=== PATIENT | male | born 1965 | race Caucasian/White ===

== ENCOUNTER 2020-01-01 06:10 | Emergency (ER) | payer OTHER, SELFPAY ==
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
--- NOTE | ~2020-01-01 | XR_ITS ---
XR knee RT 2V 01/01/2020 07:22 INDICATION: Right knee pain PROCEDURE: 2 views right knee COMPARISON: No prior studies for comparison. FINDINGS: Fracture, dislocation or subluxation is not identified. No significant joint effusion. The soft tissues appear within normal limits. No foreign bodies are identified. IMPRESSION: 1: NO ACUTE BONE OR JOINT ABNORMALITY IDENTIFIED. Reviewed, dictated and finalized at location A.
[2020-01-01 06:10] VITALS: BP 146/70; PULSE 77; RESP 20; TEMP 36.8; O2SAT 100
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
[2020-01-01] MEDS: TETANUS,DIPHTHERIA,AC PERTUSSIS ADULT 0.5 ML (ADACEL) IM (07:05)
--- NOTE | 2020-01-01 07:14 | PC.NURSE ---
PT LEFT HAND SWOLLEN AND 4TH DIGIT KNUCKLES SWOLLEN. PT HAS [place] BAND ON, BAND LUBRICATED. UNABLE TO REMOVE. PT AND PERMISSION TO CUT OF BAND WITH RING CUTTER. PT TOLERATED WELL . BAND GIVEN TO .
[2020-01-01] MEDS: LIDOCAINE HCL 1% LOCAL INJ 20 ML VIAL 10 ML INFILTRATE (07:19)
[2020-01-01] MEDS: NEOMYCIN/POLYMYXIN/BACITRACIN OINTMENT PACKET 5 PACKET TOPICAL (07:21)
--- NOTE | 2020-01-01 07:22 | PC.NURSE ---
0705 pt to xray. 0725 pt return to room. awaiting xray readings.
[2020-01-01 08:19] VITALS: BP 153/97; PULSE 86; RESP 20; O2SAT 98
--- NOTE | 2020-01-06 08:13 | PC.NURSE ---
OCL applied to right hand
== END 2020-01-01 08:21 | disposition home or self-care (01) ==
PROVIDERS: Emergency Provider Emergency Medicine; PCP Internal Medicine
DX: S01.81XA Laceration without foreign body of other part of head, initial encounter (principal); S62.305A Unspecified fracture of fourth metacarpal bone, left hand, initial encounter for closed fracture; S62.307A Unspecified fracture of fifth metacarpal bone, left hand, initial encounter for closed fracture; V19.9XXA Pedal cyclist (driver) (passenger) injured in unspecified traffic accident, initial encounter
CPT/HCPCS: 12013; 12014; 29125; 70486; 73120; 73560; 90471; 90715; 99283; 99284

== ENCOUNTER 2020-05-23 14:33 | Outpatient (RCR) | payer OTHER, SELFPAY ==
--- NOTE | 2020-05-31 15:16 | PTOPEVAL ---
Thank you for referring Baron Scott to [facility].? The patient is scheduled to be seen for therapy? ____x/week for ___ weeks. Please review, sign, date and return this plan of care ELIZABETH. I agree with and certify that the following plan of care is medically necessary. Referring Physician Date Admitting Provider: Attending Provider: PEPE BISWAS Referring Provider: MESERET Outpatient Evaluation Start: 05/23/20 14:11 Freq: Status: Active Protocol: Document 05/23/20 14:30 [facility] (Rec: 05/23/20 14:48 [facility] [id number]) Therapy Assessment Status Assessment Status Assessment Status Evaluation Outpatient Past Medical History HEENT History Hx Tonsillectomy Yes Evaluation Information Problem Diagnosis L LE pain Subjective Information patient reports pain in the Query Text:As Reported By Patient/ posterior L leg in the calf Family and posterior thigh region. he reports it has been going on for about 6 months. he reports he has been working from home a lot and has been sittin gmost of the day. he reports he has been taking some meds for about 1 month. he reports decreased pain/symptoms with sitting in a normal chair. he reports difficulty with stairs (worse going up). Prior Level of Function Comments Additional Prior Level of Function patient reports prior history Comments of no pain in the L knee. he reports he is seeking massage therapy care and has had physician primary care sports medicine for this issue. Pain Assessment Timing of Pain Assessment Timing of Pain Assessment Assessment Pain Scale Pain Scale Used Numeric (1 - 10) Self Report Pain Assessment Left Leg(s) Reported Pain Level 3 Pain Score Pain Score 3: Self Report Interventions Used Interventions Used By Clinicians Activity or ADL's,Education, Exercise Lower Extremity Range of Motion Hip Range of Motion Bilateral Reason Not Measured WNL/Left,WNL/Right Knee Range of Motion Bilateral Reason Not Measured WNL/Left,WNL/Right Lower Extremity Muscle Strength Testing Hip Strength Bilateral Hip Flexion Strength 5 Normal Hip Extension Strength 5 Normal Hip Abduction Strength 5 Normal Knee Strength Bilateral Knee Flexion Strength 5 Normal Knee Extension Strength 5 Normal
--- NOTE | 2020-06-17 14:19 | PTOPEVAL ---
Thank you for referring Baron Scott to [facility].? The patient is scheduled to be seen for therapy? ____x/week for ___ weeks. Please review, sign, date and return this plan of care ELIZABETH. I agree with and certify that the following plan of care is medically necessary. Referring Physician Date Admitting Provider: Attending Provider: PEPE BISWAS Referring Provider: MESERET Outpatient Evaluation Start: 05/23/20 14:11 Freq: Status: Active Protocol: Document 06/17/20 13:40 [facility] (Rec: 06/17/20 14:16 [facility] [id number]) Outpatient Past Medical History HEENT History Hx Tonsillectomy Yes Evaluation Information Problem Diagnosis L LE pain Onset 05/18/20 Subjective Information Patient states since the Query Text:As Reported By Patient/ starting therapy, he has been Family able to perform all activities with no difficulty. He has no difficulty with going up and down stairs or sitting in a normal chair anymore. the only time his pain increases is after a long day and it is minimal. Pain Assessment Timing of Pain Assessment Timing of Pain Assessment Assessment Pain Scale Pain Scale Used Numeric (1 - 10) Self Report Pain Assessment Left Leg(s) Reported Pain Level 0 Greatest Pain Intensity 2 Pain Score Pain Score 0: Self Report Interventions Used Interventions Used By Clinicians Activity or ADL's,Education, Exercise Lower Extremity Muscle Strength Testing Knee Strength Bilateral Knee Flexion Strength 5 Normal Knee Extension Strength 5 Normal Knee Strength Comments prone hamstring strength 5/5 Muscle Length Testing Muscle Length Testing Left Hamstring Length 15 Query Text:(90 - 90 Position) Right Hamstring Length 15 Query Text:(90 - 90 Position) Palpation Assessment Palpation Palpation Patient has no tenderness to palpation along the pes anserine bursa or medial joint line. General Exercise General Exercises Exercise Description -hamstrings stretching 6 Query Text:Record Sets, Reps, minutes Resistance, and Position -slant board stretch for gastroc x 3 min -squats x 20 -lunges on bosu x 20 bilat -heel/toe raises x 30 ea -8 in step ups x 20 bilat for
== END 2020-06-17 15:01 | disposition home or self-care (01) ==
LOC: CHSPT 14:33
DX: M71.22 Synovial cyst of popliteal space [Baker], left knee (principal); M54.32 Sciatica, left side
CPT/HCPCS: 97110; 97140; 97161

== ENCOUNTER 2021-02-17 09:31 | Outpatient (CLI) | payer OTHER, SELFPAY ==
[2021-02-17 10:20] LABS: SARS-CoV-2 RNA PCR Negative (Negative)
== END 2021-02-17 09:32 | disposition home or self-care (01) ==
LOC: CHSLAB 09:33
PROVIDERS: PCP Internal Medicine; Visit Provider Internal Medicine
DX: J06.9 Acute upper respiratory infection, unspecified (principal); Z20.822 Contact with and (suspected) exposure to COVID-19
CPT/HCPCS: C9803; U0003; U0005

== ENCOUNTER 2021-05-04 08:07 | Outpatient (CLI) | payer OTHER, SELFPAY ==
[2021-05-04 08:43] LABS: Basophils Absolute Auto 0.09 K/mm3 (0.00-0.10); Basophils Percent Auto 1.3 % (0.0-1.0); Eosinophils Absolute Auto 0.19 K/mm3 (0.02-0.50); Eosinophils Percent Auto 2.7 % (1.0-6.0); Hematocrit 48.1 % (40.0-54.0); Hemoglobin 16.3 g/dL (14.0-18.0); Immature Granulocyte Absolute 0.03 K/mm3 (0.00-0.00); Immature Granulocyte Percent A 0.4 % (0.0-0.0); Lymphocytes Absolute Auto 2.51 K/mm3 (1.10-4.50); Mean Corpuscular HGB Conc 33.9 g/dL (32.0-36.0); Mean Corpuscular Hemoglobin 31.2 pg (27.0-31.0); Mean Platelet Volume 10.1 fl (8.7-11.0); Monocytes Absolute Auto 0.52 K/mm3 (0.10-0.90); Monocytes Percent Auto 7.4 % (2.0-11.0); Neutrophils Absolute Auto 3.6 K/mm3 (1.7-7.2); Neutrophils Percent Auto 52.2 % (50.0-70.0); Platelet Count Result 318 K/mm3 (150-420); Red Blood Count 5.23 M/mm3 (4.70-6.10)
[2021-05-04 09:50] LABS: Ferritin 162 ng/mL (26-388); Iron 82 ug/dL (65-175); Percent Iron Saturation 23 % (12-57)
== END 2021-05-04 08:08 | disposition home or self-care (01) ==
LOC: CHSLAB 08:14
PROVIDERS: PCP Internal Medicine
DX: E61.1 Iron deficiency (principal)
CPT/HCPCS: 36415; 82728; 83540; 83550; 85025

== ENCOUNTER 2021-12-02 07:02 | Outpatient (CLI) | payer OTHER, SELFPAY ==
[2021-12-02 07:16] LABS: Basophils Absolute Auto 0.09 K/mm3 (0.00-0.10); Basophils Percent Auto 1.4 % (0.0-1.0); Eosinophils Absolute Auto 0.32 K/mm3 (0.02-0.50); Eosinophils Percent Auto 4.9 % (1.0-6.0); Hematocrit 48.4 % (40.0-54.0); Hemoglobin 16.3 g/dL (14.0-18.0); Immature Granulocyte Absolute 0.02 K/mm3 (0.00-0.00); Immature Granulocyte Percent A 0.3 % (0.0-0.0); Lymphocytes Absolute Auto 2.29 K/mm3 (1.10-4.50); Lymphocytes Percent Auto 35.2 % (18.0-42.0); Mean Corpuscular HGB Conc 33.7 g/dL (32.0-36.0); Mean Corpuscular Hemoglobin 31.3 pg (27.0-31.0); Mean Corpuscular Volume 92.9 fL (78.0-102.0); Mean Platelet Volume 10.1 fl (8.7-11.0); Monocytes Percent Auto 7.7 % (2.0-11.0); Neutrophils Absolute Auto 3.3 K/mm3 (1.7-7.2); Neutrophils Percent Auto 50.5 % (50.0-70.0); Platelet Count Result 326 K/mm3 (150-420); Red Blood Count 5.21 M/mm3 (4.70-6.10); Red Cell Distribution Width 12.3 % (11.6-14.4); White Blood Count 6.5 K/mm3 (4.8-10.8)
[2021-12-02 08:02] LABS: Ferritin 130 ng/mL (26-388); Iron 108 ug/dL (65-175); Percent Iron Saturation 31 % (12-57)
== END 2021-12-02 07:03 | disposition home or self-care (01) ==
LOC: CHSLAB 07:05
PROVIDERS: PCP Internal Medicine
DX: D64.9 Anemia, unspecified (principal); E61.1 Iron deficiency
CPT/HCPCS: 36415; 82728; 83540; 83550; 85025

== ENCOUNTER 2022-04-05 07:56 | Outpatient (RCR) | payer OTHER, SELFPAY ==
--- NOTE | 2022-04-05 07:58 | PTOPEVAL1 ---
Assessment and note entered by JT File, PT Evaluation Information Assessment Status Evaluation Diagnosis R knee pain Onset 03/30/22 Subjective Information patient reports he has had knee pain/issues in the past. he reports the same thing seems to be going on again. he reports the pain began a few weeks ago. he reports he wanted to get into therapy sooned this time to avoid getting to the point he was unable to walk. he reports he has increased pain at random times of the day. he reports it is not associated with activity or weight bearing. he reports at times sitting and standing will hurt the knee. he reports the pain is more in the back of the R kne. he reports he has not had an injection. he is unaware of any specific activities or postures that bring on his pain. he reports feeling some popping in the R knee. Reported Pain Level Pain Score 2: Self Report Assessment PT Clinical Summary mr. patricia presents to skilled PT services for evaluation and treatment of R posterior knee pain. he presents this date with signs and symptoms consistent with a R medial and lateral hamstrings tendinopathy. he displays pain, tenderness to palpation, and tightness of the hamstrings. he would do well to attend skilled PT to improve his objetive/functional deficits and return to his prior level functional activity performance/ quality of life. Plan of Care Interventions Gait Training,Manual Therapy,Neuro Re-education, Patient/Caregiver Educati,Therapeutic Activities, Therapeutic Exercise PT Services Indicated Yes Treatment Frequency and 2x weekly for 8 visits Duration These treatments will address the objective and functional deficits as defined above. The patient will be advanced safely and appropriately in order for the patient to progress towards his/her prior level of function. Additional exercises will be introduced and as well as a comprehensive home exercise program upon discharge, if needed, ?to ensure carryover of functional gains achieved in the clinic. This treatment plan has been reviewed and agreement upon by the patient.
== END 2022-05-03 16:59 | disposition home or self-care (01) ==
LOC: CHSPT 07:56
PROVIDERS: PCP Internal Medicine; Visit Provider Internal Medicine
DX: M25.561 Pain in right knee (principal)
CPT/HCPCS: 97110; 97140; 97161

== ENCOUNTER 2024-03-19 12:21 | Outpatient (CLI) | payer OTHER, SELFPAY ==
--- NOTE | ~2024-03-19 | XR_ITS ---
EXAMINATION: XR chest 2V DATE: 03/19/2024 12:48 INDICATION: Cough. Upper respiratory infection. TECHNIQUE: Frontal and lateral views of the chest were obtained. COMPARISON: Chest 2 views 10/24/2016 FINDINGS: There is no pneumonia, pleural effusion, or pneumothorax. The heart size is normal. IMPRESSION: 1. No acute cardiopulmonary disease. Reviewed, dictated and finalized at location A. [employer]
[2024-03-19 12:43] LABS: Basophils Absolute Auto 0.03 K/mm3 (0.00-0.10); Basophils Percent Auto 0.3 % (0.0-1.0); Hemoglobin 16.1 g/dL (14.0-18.0); Immature Granulocyte Absolute 0.06 K/mm3 (0.00-0.00); Immature Granulocyte Percent A 0.6 % (0.0-0.0); Lymphocytes Absolute Auto 1.17 K/mm3 (1.10-4.50); Lymphocytes Percent Auto 11.6 % (18.0-42.0); Mean Corpuscular HGB Conc 34.3 g/dL (32-36); Mean Corpuscular Hemoglobin 31.4 pg (27.0-31.0); Mean Corpuscular Volume 91.6 fL (78.0-102.0); Mean Platelet Volume 9.8 fl (8.7-11.0); Monocytes Absolute Auto 0.18 K/mm3 (0.10-0.90); Monocytes Percent Auto 1.8 % (2.0-11.0); Neutrophils Absolute Auto 8.63 K/mm3 (1.70-7.20); Neutrophils Percent Auto 85.7 % (50.0-70.0); Platelet Count Result 437 K/mm3 (150-420); Red Blood Count 5.13 M/mm3 (4.70-6.10); Red Cell Distribution Width 12.4 % (11.6-14.4); White Blood Count 10.1 K/mm3 (4.8-10.8)
[2024-03-19 12:44] LABS: Add Urine Microscopic? NO; Appearance Urine Clear (Clear); Bilirubin Urine Negative (Negative); Blood Urine Negative (Negative); Color Urine Light Yellow (Yellow); Glucose Urine UA Negative (Negative); Ketones Urine Negative (Negative); Leukocyte Esterase Ur Negative (Negative); Nitrate Urine Negative (Negative); Protein Urine Negative (Negative); Urobilinogen Urine 0.2 mg/dL (0.2-1.0)
[2024-03-19 13:37] LABS: Alanine Aminotransferase 42 U/L (16-63); Albumin Level 3.6 g/dL (3.4-5.0); Alkaline Phosphatase 92 U/L (46-116); Anion Gap 8 mmol/L (4-12); Aspartate Amino Transferase 20 U/L (15-37); Bilirubin,Total 0.4 mg/dL (0.00-1.00); Blood Urea Nitrogen 14 mg/dL (7-18); Calcium 9.8 mg/dL (8.5-10.1); Carbon Dioxide 29 mmol/L (21-32); Chloride 103 mmol/L (98-108); Estimated Glomerular Filt Rate > 60; Glucose 106 mg/dL (70-99); Osmolality Calculated 290 mOsm/kg (285-295); Sodium 140 mmol/L (136-145); Total Protein 7.2 g/dL (6.4-8.2)
[2024-03-19 13:39] LABS: CRP < 0.5 mg/dL (0.0-0.9)
[2024-03-19 15:30] LABS: Potassium 5.4 mmol/L (3.5-5.1)
== END 2024-03-19 12:22 | disposition home or self-care (01) ==
PROVIDERS: PCP Internal Medicine; Visit Provider Internal Medicine
DX: R05.9 Cough, unspecified (principal)
CPT/HCPCS: 36415; 71046; 80053; 81003; 85025; 86140

== ENCOUNTER 2024-08-18 07:45 | Outpatient (RCR) | payer OTHER, SELFPAY ==
--- NOTE | 2024-08-18 14:31 | OPREHPOC ---
Outpatient Therapy Plan of Care This is a Multidisciplinary Plan of Care that may contain components documented by all disciplines (PT, OT, and ST.) PT Problem 1 PT Problem #1 Knowledge Deficit PT Goal 1 Goal / Goal Update Pt to be independent in HEP Target Visit 4 PT Problem 2 PT Problem #2 Pain PT Goal 1 Goal / Goal Update Pt to report 1/10 pain to improve quality of life. Target Visit 12 PT Problem 3 PT Problem #3 Impaired Strength PT Goal 1 Goal / Goal Update Pt R hip flexor strength to be 4+/5 Target Visit 12 PT Problem 4 PT Problem #4 Impaired Functional ADLs PT Goal 1 Goal / Goal Update Pt to report less than 10% disability on the [place] to improve function and quality of life. Target Visit 12 PT Problem 5 PT Problem #5 Impaired Functional ADLs PT Goal 1 Goal / Goal Update Pt to be able to ambulate with a reciprocal gait up the stairs without using the had rail to work on weight shifting onto the R leg for functional activities. Pt to report that he can sit for an hour without pain. Target Visit 12
--- NOTE | 2024-08-18 14:31 | PTOPEVAL1 ---
Assessment and note entered by JT File, PT Evaluation Information Assessment Status Evaluation ICD-10 Condition Codes (PT) Pain in low back M54.50,Radiculopathy, lumbar region M54.16 Other ICD-10 Condition Codes ( M54.30 PT) Onset 08/11/24 Subjective Information Mr. Scott complains of R sided tingling pain that goes down his back into the leg and knee that started around 2 months ago. Pt says that standing , and stretching his piriformis in sitting makes the pain better. Pt was given an oral steroid for 6 days to help reduce inflammation, but the pt feels like it did not help. Mr. Scott has been getting adjustments at the chiropractor and states that it has helped. Patient reports that going up the stairs or being in SLS is hard and sometimes his R leg feels weak. 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 Reported Pain Level Pain Score 4: Self Report Assessment PT Clinical Summary Mr. Scott presents with R sciatic nerve pain that radiates from the back down to his knee. Pain is consistent with sciatic nerve pain and piriformis syndrome. Pt has deficits in abdominal and hip flexor strength, pain, and posture. Pt was able to perform all exercises in therapy, but needed VC on proper squat form. Mr. Scott would benefit from skilled PT to strengthen and alleviate pain to improve function and quality of life. Treatment should focus on strengthening, weight shifting on the R leg, abdominal strength, and manual therapy to the piriformis in order to achieve the pts goals. Plan of Care Interventions Electrical Stimulation,Hot Pack/Cold Pack,Manual Therapy,Neuro Re-education,Therapeutic Activities, Therapeutic Exercise PT Services Indicated Yes Treatment Frequency and 2x a week for 6 weeks Duration These treatments will address the objective and functional deficits as defined above. The patient will be advanced safely and appropriately in order for the patient to progress towards his/her prior level of function. Additional exercises will be introduced and as well as a comprehensive home exercise program upon discharge, if needed, ?to ensure carryover of functional gains achieved in the clinic. This treatment plan has been reviewed and agreement upon by the patient.
--- NOTE | 2024-08-18 14:35 | PCPTNOTE ---
On 08/18/24, the student, [Hugo Ureña], provided care and completed [facility] documentation on this patient. I have reviewed the student's documentation and agree with the findings.
--- NOTE | 2024-08-20 10:01 | PCPTNOTE ---
I reviewed the Student Therapist's documentation and agree with the findings. -Janny Arroyo, PT
--- NOTE | 2024-08-27 08:45 | PCPTNOTE ---
On 08/27/24, the student, [Hugo Ureña], provided care and completed [facility] documentation on this patient. I have reviewed the student's documentation and agree with the findings.
--- NOTE | 2024-09-08 08:01 | PCPTNOTE ---
On 09/08/24, the student, [Hugo Ureña], provided care and completed [facility] documentation on this patient. I have reviewed the student's documentation and agree with the findings.
--- NOTE | 2024-09-10 08:50 | PCPTNOTE ---
On 09/10/24, the student, [Hugo Ureña], provided care and completed [facility] documentation on this patient. I have reviewed the student's documentation and agree with the findings.
--- NOTE | 2024-09-15 09:39 | PCPTNOTE ---
On 09/15/24, the student, [Hugo Ureña], provided care and completed [facility] documentation on this patient. I have reviewed the student's documentation and agree with the findings.
--- NOTE | 2024-09-17 07:37 | PCPTNOTE ---
Patient called & cancelled scheduled appointment this date due to having too many deadlines at work. He scheduled for 2 visits next week. -Janny Arroyo, PT
--- NOTE | 2024-09-22 07:03 | PCPTNOTE ---
Patient called & cancelled scheduled appointment this date due to conflicts with work. -Janny Arroyo, PT
== END 2024-09-15 20:00 | disposition home or self-care (01) ==
LOC: CHSPT 07:45
PROVIDERS: PCP Nurse Practitioner Family; Visit Provider Nurse Practitioner Family
DX: M54.30 Sciatica, unspecified side (principal)
CPT/HCPCS: 97012; 97110; 97112; 97140; 97161

== ENCOUNTER 2024-10-17 06:15 | Emergency (ER) | payer OTHER, SELFPAY ==
--- NOTE | ~2024-10-17 | XR_ITS ---
EXAMINATION: XR knee RT min 4V DATE: 10/17/2024 06:44 INDICATION: Posttraumatic lateral right knee pain TECHNIQUE: Anteroposterior, 2 oblique and crosstable lateral views of the right knee were obtained COMPARISON: None. FINDINGS: Alignment is normal. No fracture. Mild joint space narrowing the medial compartment of the right kne e. No joint effusion/layering lipohemarthrosis. Soft tissues are unremarkable. IMPRESSION: 1. Mild osteoarthritis in medial compartment of the right knee. No joint effusion or acute osseous ab normality. Reviewed, dictated and finalized at location A. IMPRESSION: 1. Mild osteoarthritis in medial compartment of the right knee. No joint effusi on or acute osseous abnormality.
[2024-10-17 06:15] VITALS: BP 177/107; PULSE 71; RESP 18; TEMP 36.8; O2SAT 98
--- OUTSIDE RECORDS SUMMARY | 2024-10-17 06:17 | XMS_ITS | Continuity of Care Document ---
Author Organization [facility] [place], [place] Address [address] [place] [address] Phone Care Team Providers Care Document Specialist Name Role Phone Polanco OD, Manuel Unavailable Unavailable Procedures Procedure Date Contact Lens Hydrophilic, Spherical Medical Tax Optic Nerve Topography Optic Nerve Topography Jan- Visual Field Examination(s) Eye Exam & Treatment Refraction Eye Exam & Treatment Refraction CL Replacement - Vistakon Disp W/BW Soft Guestmob - Medical Eye Exam Established Pt Eye Exam Established Pt CL Replacement - Vistakon Disp W/BW Soft Guestmob - Medical Optic Nerve Topography Optic Nerve Topography Visual Field Examination(s) Eye Exam & Treatment CL Replacement - Vistakon Disp W/BW Soft Guestmob - Medical Eye Exam & Treatment Refraction CL Replacement - Vistakon Other 007 Guestmob - Medical Advance Directives Directive Yes / No Effective Date File Name No Information Encounters Encounter Description Practice Location Reason(s) For Visit Diagnoses Date Provider Providers [facility]ied [facility] [address], [place], [place], [id number], [place] tel:[phone] [facility] No Information Oct-2 2-201 0 Polanco OD Manuel. [address] [facility] [facility] , [address], [place], [address], [place]. tel:[phone] Referring Provider: Manuel Polanco OD A, [address], [place], [place], [facility]. tel:[phone] [facility], [address] [place] [address] [address], [place], [place], [address], [place] tel:[phone] [facility] No Information Oct-1 2-201 0 Polanco OD Manuel. [address], [address], [place], [address], [place]. tel:[phone] Referring Provider: Manuel Crowe, [facility] [address], [place], [place], [facility]. tel:[phone] [facility], [address], [place], [place], [address], [place] tel:[phone] [facility] No Information Aug-2 3-201 0 Polanco OD Manuel. [address] [place], [place] [address], [address], [place], [place], [facility], [place]. tel:[phone] Referring Provider: Manuel Crowe, [facility] [address], [place], [address]. tel:[phone] [facility], [address], [place], [place], [address], [place] tel:[phone] [facility] No Information Gael-2 5-201 0 Polanoc OD Manuel. [facility] [address], [address], [place], [address], [place]. tel:[phone] [facility], [address], [place], [place], [address], [place] tel:[phone] [facility] No Information Apr-1 0-200 9 Polanco OD Manuel. [address], [address], [place], [facility], [place]. tel:[phone] [facility], [address], [place], [place], [address], [place] tel:[phone] [facility] No Information Apr-1 0-200 9 Polanco OD Manuel. [address] [place], [place] [address]ate Center , [address], [place], [place], [facility], [place]. tel:[phone] Referring Provider: Manuel Polanco OD A, [facility] [address], [place], [facility]. tel:[phone] [facility], [address] [place] [address] [address], [place], [place], [address], [place] tel:[phone] [facility] No Information Oct-1 1-200 8 Polanco OD Manuel. [address] [place], [place] [address]ate Center , [address], [place], [facility], [place]. tel:[phone] [facility], [address] [place] [address] [address], [place], [place], [address], [place] tel:[phone] [facility] No Information Gael-0 5-200 8 Polanco OD Manuel. [address] [place], [place] [address]ate Center , [address], [place], [facility], [place]. tel:[phone] [facility], [address] [place] [address] [address], [place], [place], [address], [place] tel:[phone] [facility] No Information Apr-1 8-200 8 Polanco OD Manuel. [address] [place], [place] [address]ate Center , [address], [place], [address], [place]. tel:[phone] Referring Provider: Manuel Polanco OD A, [facility] [address], [place], [address]. tel:[phone] [facility], [address] [place] [address] [address], [place], [place], [address], [place] tel:[phone] [facility] No Information 200 8 Polanco OD Manuel. [address] , [address], [place], [address], [place]. tel:[phone] Referring Provider: Manuel Crowe, [address], [place], [facility]. tel:[phone] [facility], [address] [facility] [place] [address], [place], [place], [address], tel:[phone] [facility] No Information 7 Polanco OD Manuel. [address] [facility] , [address], [place], [address], [place]. tel:[phone] Family History Family Member Type Diagnosis Age At Onset No Information Payers Payer name Insurance type Covered alliance party ID Authoriza tion(s) No Information Social History Type Description Quantity Date Captured Comments Sex Male Smoking Status No Information Chief Complaint And Reason For Visit No Information Reason For Referral Reason For Referral No Information History Of Present Illness Encounter Date Complaint History Of Prese nt Illness No Information Functional Status Date Functional Assessmen t No Information Instructions Date Instruction Additional Infor mation No Information Assessments Type Assessment Date No Information Patient Care Teams Name Effective Dates (start - stop) Status Members No Information
--- OUTSIDE RECORDS SUMMARY | 2024-10-17 06:17 | XMS_ITS | Clinical Summary ---
Author Organization [facility] Address [facility] [place] [place] [address] Care Team Providers Care Hogshead Salvage Name Role Phone Dereck Armendariz MD Primary Care Provider [phone] Rico Ackerman MD Unavailable [phone] Allergies No known active allergies Medications multivitamin capsuleIndicati ons:Vitamin Deficiency Prevention Take 1 capsule by mouth every morning Active dorzolamide-clover oloL (COSOPT) 22.3-6.8 mg/mL ophthalmic solutionIndicat ions:open angle glaucoma Administer 1 drop into both eyes 2 (two) times a day 0 Active acetaminophen-c odeine (TYLENOL with CODEINE #3) 300-30 mg per tablet Take by mouth every 6 (six) hours as needed 0 Active escitalopram (LEXAPRO) 5 mg tablet 0 Active montelukast (SINGULAIR) 10 mg tablet Take 1 tablet (10 mg total) by mouth every evening 2 Active guaiFENesin-cod eine (GUAITUSS AC) liquid 100-10 mg/5 mL TAKE 2-4 TEASPOON AT BEDTIME NEEDED 2 Active Active Problems Problem Noted Date Diagnosed Date Anemia 01/20/2020 White coat syndrome with hypertension 01/20/2020 Closed displaced fracture of base of fifth metacarpal bone of left hand 01/04/2020 Overview (01/04/2020): Added automatically from request for surgery [id number] Closed nondisplaced fracture of base of fourth metacarpal bone of left hand 01/04/2020 Overview (01/04/2020): Added automatically from request for surgery [id number] Atypical chest pain 02/25/2018 Asthma 11/01/2017 Persistent cough Immunizations Immunization Administration Dates Next Due Influenza, Quadrivalent, Spl it, Preservative Free, Intramuscular 01/16/2018 Influenza, Trivalent, IM (MDV) 03/06/2013 Tdap 01/01/2020 Surgical History Surgery Date Site/Laterality Comments COLONOSCOPY TONSILLECTOMY age 2 Family History Medical History Relation Name Comments Heart disease Father No Known Problems Mother Anesthesia problems Neg Hx Stroke Neg Hx Relation Name Status Comments Father (Age 78) Mother Social History Tobacco Use Types Packs/Day Years Used Date Smoking Tobacco: Never Smokeless Tobacco: Never Alcohol Use Standard Drinks/Week Comments Yes 4 (1 standard drink = 0.6 oz pur e alcohol) Sex and Gender Information Value Date Recorded Sex Assigned at Not on file Legal Sex Male 1:47 AM NARROW FABRICS WEAVER Gender Identity Not on file Sexual Orientation Not on file Obstetrics History Last Filed Vital Signs Vital Sign Reading Time Taken Comments Blood Pressure 143/95 04/16/2023 8:17 AM NARROW FABRICS WEAVER Pulse 62 04/16/2023 8:17 AM NARROW FABRICS WEAVER Temperature 36.8 C (98.2 F) 04/16/2023 8:17 AM NARROW FABRICS WEAVER Respiratory Rate 18 04/16/2023 8:17 AM NARROW FABRICS WEAVER Oxygen Saturation 98% 04/16/2023 8:17 AM NARROW FABRICS WEAVER Inhaled Oxygen Concentration - - Weight 107.1 kg (236 lb 3.2 oz) 04/16/2023 8:17 AM NARROW FABRICS WEAVER Height 175.3 cm (5' 9) 04/16/2023 8:17 AM NARROW FABRICS WEAVER Body Mass Index 34.88 04/16/2023 8:17 AM NARROW FABRICS WEAVER Plan of Treatment Health Maintenance Due Date Last Done Comments Colon Cancer Screening-Colonoscopy 1965 Depression Screening 1965 Hepatitis C Screening 1965 Prostate Cancer Screening-PSA 1963 Hepatitis B Screening 10/05/1981 Regular Well Visit/Exam 18-64 10/05/1981 Pneumococcal vaccine <65 (1 of 2 - PCV) 10/05/1982 Zoster Vaccine (1 of 2) 10/05/2013 Influenza Vaccine (#1) 2024 01/16/2018, 2012 DTaP/Tdap/Td Vaccine (2 - Td or Tdap) 12/31/2029 Medical Devices Implanted Type Area Personal Lines Account Manager Device Identifier Shelf Expiration Date Model / Serial / Lot [employer] [id number] Yuriy .045in 4in 2 [place] Smooth Wire Fixation - [id number] Implanted:Qty: 3 on 01/06/2020 by Courtney Chawla MD PhD at [facility] Left: Hand [employer] [id number] / / [id number] Member Subscriber Plan / Payer (Ef fective 2022-Present) Name:Baron Scott Member ID:[id number] Relation to Subscriber:Self Name:Baron Scott Subscriber ID:[id number] Payer ID:[id number] Type:HEALTH[employer] HMO/PPO Address: [address] [place] [id number] Care Teams Hogshead Salvage Relationship Specialty Start Date End Date Dereck Armendariz MD PCP - General Internal Medicine 01/01/20 Rico Ackerman MD [address] [place] [address] Referring Physician Emergency Medicine 01/01/20
--- OUTSIDE RECORDS SUMMARY | 2024-10-17 06:17 | XMS_ITS | Referral Summary ---
Author Organization [facility] Address [facility] [place] [address] Care Team Providers Care Fittings Finisher Name Role Phone Dereck Armendariz MD Primary Care Provider [phone] Rico Ackerman MD Unavailable [phone] Allergies No known active allergies Medications multivitamin [...] (01/04/2020): Added automatically from request for surgery [id number] Closed nondisplaced fracture of base of fourth metacarpal bone of left hand 01/04/2020 Overview (01/04/2020): Added automatically from request for surgery [id number] Atypical chest pain 02/25/2018 Asthma 11/01/2017 Persistent cough Immunizations Immunization Administration Dates Next Due Influenza, Quadrivalent, Spl it, Preservative Free, Intramuscular 01/16/2018 Influenza, Trivalent, IM (MDV) 03/06/2013 Tdap 01/01/2020 Social History Tobacco Use Types Packs/Day Years Used Date Smoking Tobacco: Never Smokeless Tobacco: Never Alcohol Use Standard Drinks/Week Comments Yes 4 (1 standard drink = 0.6 oz pur e alcohol) Sex and Gender Information Value Date Recorded Sex Assigned at Not on file Legal Sex Male 1:47 AM AIR INTELLIGENCE SPECIALIST Gender Identity Not on file Sexual Orientation Not on file Last Filed Vital Signs Vital Sign Reading Time Taken Comments Blood Pressure 143/95 04/16/2023 8:17 AM AIR INTELLIGENCE SPECIALIST Pulse 62 04/16/2023 8:17 AM AIR INTELLIGENCE SPECIALIST Temperature 36.8 C (98.2 F) 04/16/2023 8:17 AM AIR INTELLIGENCE SPECIALIST Respiratory Rate 18 04/16/2023 8:17 AM AIR INTELLIGENCE SPECIALIST Oxygen Saturation 98% 04/16/2023 8:17 AM AIR INTELLIGENCE SPECIALIST Inhaled Oxygen Concentration - - Weight 107.1 kg (236 lb 3.2 oz) 04/16/2023 8:17 AM AIR INTELLIGENCE SPECIALIST Height 175.3 cm (5' 9) 04/16/2023 8:17 AM AIR INTELLIGENCE SPECIALIST Body Mass Index 34.88 04/16/2023 8:17 AM AIR INTELLIGENCE SPECIALIST Plan of Treatment Not on file Medical Devices Implanted Type Area Field Horticultural Specialty Grower Device Identifier Shelf Expiration Date Model / Serial / Lot [employer] [id number] Yuriy .045in 4in 2 [place] Smooth Wire Fixation - [id number] Implanted:Qty: 3 on 01/06/2020 by Courtney Chawla MD PhD at [facility] Left: Hand [employer] [id number] / / Insurance [facility] [id number] Care Teams Fittings Finisher Relationship Specialty Start Date End Date Dereck Armendariz MD PCP - General Internal Medicine 01/01/20 Rico Ackerman MD [address] [place] [address] Referring Physician Emergency Medicine 01/01/20
--- OUTSIDE RECORDS SUMMARY | 2024-10-17 06:17 | XMS_ITS | Encounter Summary ---
Author Organization [facility] Address [address] [place] [address] Care Team Providers Care Instrument And Control Service Person Name Role Phone Dereck Armendariz MD Primary Care Provider [phone] Cruz Vasquez MD Unavailable Mauri Elizalde MD Unavailable Rajani Yao APRN, NP-C Unavailable Encounter Details Date Type Department Care Team (Late st Contact Info) Description 03/24/2018 Abstract [facility] [address] [place] [address] Cruz Vasquez MD [address] [place] [address] Social History Tobacco Use Types Packs/Day Years Used Date Smoking Tobacco: Never Smokeless Tobacco: Never Sex and Gender Information Value Date Recorded Sex Assigned at Not on file Legal Sex Male 11:28 PM CDT Gender Identity Not on file Sexual Orientation Not on file 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 Not on file N ot on file documented as of this encounter Plan of Treatment Not on file documented as of this encounter Procedures Procedure Name Priority Date/Time Associated Diagnosis Comments LIPID PANEL Routine 03/24/2018 documented in this encounter Results * LIPID PANEL (03/24/2018) CHOLESTEROL 208 HDL 66 TRIGLYCERIDES 84 CHOL/HDL RATIO 3.2 LDL (CALCULATED) 125 03/24/2018 us Doc [facility] LABORATORY Final Result documented in this encounter Visit Diagnoses Not on filedocumented in this encounter Care Teams Instrument And Control Service Person Relationship Specialty Start Date End Date Dereck Armendariz MD [address] [place] [address] PCP - General INTERNAL MEDICINE 10/30/17 Cruz Vasquez MD [address] [place] [address] [place] Pump And Still Operator CARDIOVASCULAR DISEASE 10/30/17 Mauri Elizalde MD [address] [place] [address] Consulting Physician PULMONARY DISEASE 02/25/18 Rajani Yao, COMMAND AND CONTROL, FLIPPING MACHINE OPERATOR-C [address] [facility] [address] [place] [address] NURSE PRACTITIONER 08/07/19 documented as of this encounter
--- OUTSIDE RECORDS SUMMARY | 2024-10-17 06:17 | XMS_ITS | Encounter Summary ---
Author Organization [facility] Address [address] [place] [address] Care Team Providers Care Contract Loader Name Role Phone Dereck Armendariz MD Primary Care Provider Cruz Vasquez MD Unavailable Mauri Elizalde MD Unavailable Rajani Yao APRN, NP-C Unavailable Encounter Details Date Type Department Care Team (Late st Contact Info) Description 10/28/2017 Abstract [facility] [address] [place] [address] Cruz Vasquez MD [address] [place] [address] Social History Tobacco Use Types Packs/Day Years Used Date Smoking Tobacco: Never Smokeless Tobacco: Never Sex and Gender Information Value Date Recorded Sex Assigned at Not on file Legal Sex Male 11:28 PM CDT Gender Identity Not on file Sexual Orientation Not on file 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 on file N ot on file documented as of this encounter Plan of Treatment Not on file documented as of this encounter Visit Diagnoses Not on filedocumented in this encounter Care Teams Contract Loader Relationship Specialty Start Date End Date Dereck Armendariz MD [address] [place] [address] PCP - General INTERNAL MEDICINE 10/30/17 Cruz Vasquez MD [address] [place] [address] Cash Utilization Management Nurse CARDIOVASCULAR DISEASE 10/30/17 Mauri Elizalde MD [address] [place] [address] Consulting Physician PULMONARY DISEASE 02/25/18 Rajani Yao APRN, UNIVERSITY SERVICES PROGRAM ASSOCIATE-C [address] [place] [address] [address] [place] [address] NURSE PRACTITIONER 08/07/19 documented as of this encounter
--- OUTSIDE RECORDS SUMMARY | 2024-10-17 06:17 | XMS_ITS | Clinical Summary ---
Author Organization [facility] Address [facility] [place] [address] Care Team Providers Care Medical Massage Therapist Name Role Phone Dereck Armendariz MD Primary Care Provider [phone] Cruz Vasquez MD Unavailable Mauri Elizalde MD Unavailable [phone] Rajani Yao APRN BRISTLE MACHINE OPERATOR-C Unavailable Allergies No known active allergies Medications escitalopram 5 MG tablet 08/21/2017 Active ranitidine 150 MG tablet 10/30/2017 Active Multiple Vitamins-Minerals (MULTIVITAMIN ADULTS) Tab Active Active Problems Problem Noted Date Diagnosed Date Atypical chest pain 02/25/2018 Asthma (HHS/HCC) 11/01/2017 Labile hypertension White coat syndrome with hypertension Anemia Family History Relation Status Comments Father (Age 75) CAD, HTN, COPD , diabetes, skin cancer Mother Alive breast/skin canc er, diabetes, osteoarthritis Sister Alive lung resection Social History Tobacco Use Types Packs/Day Years Used Date Smoking Tobacco: Never Smokeless Tobacco: Never Sex and Gender Information Value Date Recorded Sex Assigned at Not on file Legal Sex Male 11:28 PM CDT Gender Identity Not on file Sexual Orientation Not on file 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 file N ot on file Last Filed Vital Signs Vital Sign Reading Time Taken Comments Blood Pressure 127/92 08/07/2019 11:26 AM CDT Pulse 83 11/01/2017 12:01 PM CDT Temperature - - Respiratory Rate 20 08/07/2019 11:26 AM CDT Oxygen Saturation 97% 11/01/2017 12:01 PM CDT Inhaled Oxygen Concentration - - Weight 103.4 kg (228 lb) 08/07/2019 11:26 AM CDT Height 177.8 cm (5' 10) 08/07/2019 11:26 AM CDT Body Mass Index 32.71 08/07/2019 11:26 AM CDT Plan of Treatment Health Maintenance Due Date Last Done Comments Colorectal Cancer Screening Colonoscopy (10 Years) 1963 Annual Physical 10/05/1966 Hepatitis C 10/05/1981 DTaP, Tdap and Td Vaccines ( 1 - Tdap) 10/05/1982 Pneumococcal Vaccine: 50+ Ye ars (1 of 2 - PCV) 10/05/1982 Zoster Vaccines (1 of 2) 10/05/2013 RSV Immunization or 60+ Years (1 - Risk 60-74 years 1-dose series) 2023 COVID-19 Vaccine (1 - 2023-2 5 season) 2023 Meningococcal B Vaccine Aged Out No l onger eligible based on patient's age to complete this topic Meningococcal Vaccine Aged Out No demetrice fide eligible based on patient's age to complete this topic RSV Immunizations Under 20 Months Aged Out No longer eligible based on patient's age to complete this topic Insurance [employer] [facility] Care Teams Medical Massage Therapist Relationship Specialty Start Date End Date Dereck Armendariz MD [address] [place] [address] PCP - General INTERNAL MEDICINE 10/30/17 Cruz Vasquez MD [address] [place] [address] [place] Career Education Teacher CARDIOVASCULAR DISEASE 10/30/17 Mauri Elizalde MD [address] [place] [address] Consulting Physician PULMONARY DISEASE 02/25/18 Rajani Yao, NURSING PROGRAM COORDINATOR, BRISTLE MACHINE OPERATOR-C [address] [place] [address] [address] [place] [address] NURSE PRACTITIONER 08/07/19
--- NOTE | 2024-10-17 06:27 | ED_ITS ---
HPI - Extremity Injury (Lower) General Chief Complaint: Extremity Injury, Lower Stated Complaint: right knee injury Time Seen by Provider: 10/17/24 06:26 Source: patient Mode of arrival: ambulatory Limitations: no limitations History of Present Illness HPI Narrative: Patient is a 59-year-old male with a right knee injury done yesterday. He was getting out of his truck and stepped down and hurt her right knee pop and pain. The pain is more so centered around the right lateral aspect of the knee. It is also behind the knee. No other injuries. patient having difficulties bending the right knee. complaint: knee injury ( Right) Onset (ago): day(s) (2) Type of Injury: hyperextension Place: street/outdoors Severity: moderate Severity scale (1-10): 4 Relieving factors: immobilization Exacerbating factors: weight bearing, movement and palpation Context: other ( patient stepped out of his truck and onto the concrete) Associated symptoms: snap/pop sensation and able to partially bear weight Other symptoms: none Treatments prior to arrival: other ( none) Related Data Allergies Allergy/AdvReac Type Severity Reaction Status Date / Time No Known Drug Allergies Allergy Mild NONE Verified 10/17/24 06:29 Review of Systems Review of Systems: All systems reviewed & are unremarkable except as noted in HPI and below Constitutional: Constitutional: Reports no additional constitutional complaints Eyes: Eyes: Reports no additional eye complaints ENT: Reports system reviewed and no additional complaints, except as documented Cardiovascular: Cardiovascular: Reports no additional cardiovascular complaints Respiratory: Respiratory: Reports no additional respiratory complaints Gastrointestinal: Gastrointestinal: Reports no additional gastrointestinal complaints Genitourinary: Genitourinary: Reports no additional male genitourinary complaints Musculoskeletal: Musculoskeletal: Reports no additional musculoskeletal complaints Integumentary/Breasts: Skin/Breast: Reports system reviewed and no additional complaints, except as docu Neurologic: Reports system reviewed and no additional complaints, except as documented Psychiatric: Psychiatric: Reports no additional psychiatric complaints Endocrine: Endocrine: Reports no additional endocrine complaints Hematologic/Lymphatic: Hematologic/Lymphatic: Reports no additional he matologic/lymphatic complaints Allergic/Immunologic: Allergic/Immunologic: Reports no additional allergic/immunologic complaints PMFSH Past Medical History Medical History (Updated 10/17/24 @ 06:40 by Kaushik Anderson MD) Patient denies medical problems Exam Const: General: healthy appearing Nutritional Appearance: well nourished Orientation/consciousness: patient oriented x3 HENMT: Head: normal to inspection Ears: external ears normal Face/Nose/Sinus: Normal external nose present Eyes: Conjunctivae: conjunctivae normal Pupils: Equal, round and reactive pupils present EOM: EOMs intact bilaterally Neck: Neck: normal visual inspection Chest: Chest palpation & inspection: normal inspection of the chest Resp: Effort & Inspection: normal respiratory effort and not labored Auscultation: clear to auscultation bilaterally and no crackles Cardio: Rate: regular rate Rhythm: regular rhythm Heart sounds: no murmurs Skin: General skin exam: normal color Rashes: no rashes Wounds: no wounds Neuro: General: patient oriented x3, moves all extremities and no meningeal signs Extrem: General: abnormal to inspection Other: Slightly swelling to the right knee compared to the left knee; maneuvers to the right knee produce pain to the right lateral collateral ligament area and the right meniscus area with some pain to the posterior right knee as well Psych: Mental Status: mental status grossly normal Affect: normal affect Attitude: cooperative Course Vital Signs Vital signs: Vital Signs Temperature 36.8 C 10/17/24 06:15 Pulse Rate 71 10/17/24 06:15 Respiratory Rate 18 10/17/24 06:15 Blood Pressure 177/107 H 10/17/24 06:15 Pulse Oximetry 98 10/17/24 06:15 Oxygen Delivery Room Air 10/17/24 06:15 Temperature 36.8 C 10/17/24 06:15 Pulse Rate 71 10/17/24 06:15 Respiratory Rate 18 10/17/24 06:15 Blood Pressure 177/107 H 10/17/24 06:15 Pulse Oximetry 98 10/17/24 06:15 Oxygen Delivery Room Air 10/17/24 06:15 MDM - Extremity Injury (Lower) MDM Narrative Medical decision making narrative: patient is a 59-year-old male with a right knee injury yesterday. We will get x-rays. Patient will need an MRI most likely. Imaging Data Attestation: I personally reviewed and interpreted this imaging study as follows: Radiologist's impression: Xray right knee is negative for acute process Discharge Plan Discharge Clinical Impression: Derangement of knee, right Knee sprain Qualifiers: Encounter type: initial encounter Involved ligament of knee: other ligament Laterality: right Qualified Code(s): S83.8X1A - Sprain of other specified parts of right knee, initial encounter Patient Disposition: Home Condition: Stable Instructions: Knee Sprain (ED), Swollen Knee Joint (ED) Additional Instructions: please follow-up with primary doctor in the next week and have them order an MRI of the right knee. Patient Language: Greenlandic Prescriptions: New meloxicam 15 mg tablet 15 mg PO DAILY PRN (Reason: pain) Qty: 20 0RF No Action acetaminophen-codeine 300-30 mg tablet 1 tablet PO Q6H PRN (Reason: pain) Qty: 15 0RF Follow-up/Referrals: Dereck Armendariz MD [Primary Care Provider] - Time of Disposition: 07:10
--- OUTSIDE RECORDS SUMMARY | 2024-10-17 06:33 | XMS_ITS | Continuity of Care Document ---
Author Organization [facility] Address [address] [place] [address] Phone Care Team Providers Care Pool Manager Name Role Phone Polanco OD, Manuel Unavailable Unavailable Procedures Procedure Date Contact Lens Hydrophilic, Spherical Medical Tax Optic Nerve Topography Optic Nerve Topography Jan- Visual Field Examination(s) Eye Exam & Treatment Refraction Eye Exam & Treatment Refraction CL Replacement - Vistakon Disp W/BW Soft Simfinit - Medical Eye Exam Established Pt Eye Exam Established Pt CL Replacement - Vistakon Disp W/BW Soft Simfinit - Medical Optic Nerve Topography Optic Nerve Topography Visual Field Examination(s) Eye Exam & Treatment CL Replacement - Vistakon Disp W/BW Soft Simfinit - Medical Eye Exam & Treatment Refraction CL Replacement - Vistakon Other 007 Simfinit - Medical Advance Directives Directive Yes / No Effective Date File Name No Information Encounters Encounter Description Practice Location Reason(s) For Visit Diagnoses Date Provider Providers Copied on Encounter [facility], [address], [place], [place], [id number], [place] tel:[phone] [facility] No Information Oct-2 2-201 0 Polanco OD Manuel. [address] , [address], [place], [address], [place]. tel:[phone] Referring Provider: Manuel Polanco OD A, [address], [place], [place], [facility]. tel:[phone] [facility], [address] [place] [address] [address], [place], [place], [id number], [place] tel:[phone] [facility] No Information Oct-1 2-201 0 Polanco OD Manuel. [address], [address], [place], [address], [place]. tel:[phone] Referring Provider: Manuel Crowe, [facility] [address], [place], [place], [facility]. tel:[phone] [facility], [address], [place], [place], [id number], [place] tel:[phone] [facility] No Information Aug-2 3-201 0 Polanco OD Manuel. [address] [place], [place] [address], [address], [place], [place], [facility], [place]. tel:[phone] Referring Provider: Manuel Crowe, [facility] [address], [place], [address]. tel:[phone] [facility], [address], [place], [place], [address], [place] tel:[phone] [facility] No Information Gael-2 5-201 0 Polanco OD Manuel. [facility] [address], [address], [place], [address], [place]. tel:[phone] [facility], [address], [place], [place], [address], [place] tel:[phone] [facility] No Information Apr-1 0-200 9 Polanco OD Manuel. [address], [address], [place], [place], [facility], [place]. tel:[phone] [facility], [address], [place], [place], [address], [place] tel:[phone] [facility] No Information Apr-1 0-200 9 Polanco OD Manuel. [address] [place], [place] [address]ate Center , [address], [place], [place], [facility], [place]. tel:[phone] Referring Provider: Manuel Polanco OD A, [facility] [address], [place], [facility]. tel:[phone] [facility], [address] [place] [address] [address], [place], [place], [address], [place] tel:[phone] [facility] No Information Oct-1 1-200 8 Polanco OD Manuel. [address] [place], [place] [address]ate Center , [address], [place], [place], [facility], [place]. tel:[phone] [facility], [address] [place] [address] [address], [place], [place], [address], [place] tel:[phone] [facility] No Information Gael-0 5-200 8 Polanco OD Manuel. [address] [place], [place] [address]ate Center , [address], [place], [facility], [place]. tel:[phone] [facility], [address] [place] [address] [address], [place], [place], [address], [place] tel:[phone] [facility] No Information Apr-1 8-200 8 Polanco OD Manuel. [address] [place], [place] [address]ate Center , [address], [place], [address], [place]. tel:[phone] Referring Provider: Manuel Polanco OD A, [facility] [address], [place], [address]. tel:[phone] [facility], [address] [place] [address] [address], [place], [place], [address], [place] tel:[phone] [facility] No Information 200 8 Polanco OD Manuel. [address] , [address], [place], [address], [place]. tel:[phone] Referring Provider: Manuel Crowe, [address], [place], [facility]. tel:[phone] [facility], [address], [place], [place], [address], tel:[phone] [facility] No Information 7 Polanco OD Manuel. [address] , [address], [place], [address], [place]. tel:[phone] Family History Family Member Type Diagnosis Age At Onset No Information Payers Payer name Insurance type Covered constitution party ID Authoriza tion(s) No Information Social [...]
--- NOTE | 2024-10-17 06:38 | PC.NURSE ---
XRAY AT THE BEDSIDE
[2024-10-17] MEDS: KETOROLAC (*BKC) 60 MG/2 ML VIAL IM (06:52)
== END 2024-10-17 07:20 | disposition home or self-care (01) ==
PROVIDERS: Emergency Provider Emergency Medicine; PCP Internal Medicine
DX: S83.8X1A Sprain of other specified parts of right knee, initial encounter (principal); X58.XXXA Exposure to other specified factors, initial encounter
CPT/HCPCS: 73564; 96372; 99283; J1885

== ENCOUNTER 2024-10-19 10:37 | Outpatient (CLI) | payer OTHER, SELFPAY ==
--- NOTE | ~2024-10-19 | XR_ITS ---
Left Shoulder Technique: AP and scapular Y views were obtained. Clinical History: Pain Findings: No fracture or dislocation is seen. Osseous alignment is anatomic. The glenohumeral and acr omioclavicular joint spaces are preserved. Soft tissues are unremarkable. Impression: Unremarkable left shoulder radiographs. Reviewed, dictated and finalized at [facility]. Impression: Unremarkable left shoulder radiographs.
--- OUTSIDE RECORDS SUMMARY | 2024-10-19 10:42 | XMS_ITS | Encounter Summary ---
Author Organization [facility] Address [address] [place] [address] Care Team Providers Care Affirmative Action Officer Name Role Phone Dereck Armendariz MD Primary Care Provider Cruz Vasquez MD Unavailable Mauri Elizalde MD Unavailable [phone] Rajani Yao APRN, NP-C Unavailable Encounter Details Date Type Department Care Team (Late st Contact Info) Description 10/28/2017 Abstract [facility] [address] [place] [address] Crzu Vasquez MD [address] [place] [address] Social History Tobacco Use Types Packs/Day Years Used Date Smoking Tobacco: Never Smokeless Tobacco: Never Sex and Gender Information Value Date Recorded Sex Assigned at Not on file Legal Sex Male 11:28 PM CDT Gender Identity Not on file Sexual Orientation Not on file 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 Not on file N ot on file documented as of this encounter Plan of Treatment Not on file documented as of this encounter Visit Diagnoses Not on filedocumented in this encounter Care Teams Affirmative Action Officer Relationship Specialty Start Date End Date Dereck Armendariz MD [address] [place] [address] PCP - General INTERNAL MEDICINE 10/30/17 Cruz Vasquez MD [address] [place] [address] [place] Machine Captain CARDIOVASCULAR DISEASE 10/30/17 Mauri Elizalde MD [address] [place] [address] Consulting Physician PULMONARY DISEASE 02/25/18 Rajani Yao APRN, ACCOUNTING ASSISTANT-C [address] [place] [address] [address] [place] [address] NURSE PRACTITIONER 08/07/19 documented as of this encounter
--- OUTSIDE RECORDS SUMMARY | 2024-10-19 10:42 | XMS_ITS | Referral Summary ---
Author Organization [facility] Address On license [place] [address] Care Team Providers Care Report Manager Name Role Phone Dereck Armendariz MD Primary Care Provider [phone] Rico Ackerman MD Unavailable [phone] Allergies No known active allergies Medications multivitamin [...] (01/04/2020): Added automatically from request for surgery [id number] Closed nondisplaced fracture of base of fourth metacarpal bone of left hand 01/04/2020 Overview (01/04/2020): Added automatically from request for surgery [id number] Atypical chest pain 02/25/2018 Asthma 11/01/2017 Persistent [...] on file Legal Sex Male 1:47 AM INDUCTION FURNACE OPERATOR Gender Identity Not on file Sexual Orientation Not on file Last Filed Vital Signs Vital Sign Reading Time Taken Comments Blood Pressure 143/95 04/16/2023 8:17 AM INDUCTION FURNACE OPERATOR Pulse 62 04/16/2023 8:17 AM INDUCTION FURNACE OPERATOR Temperature 36.8 C (98.2 F) 04/16/2023 8:17 AM INDUCTION FURNACE OPERATOR Respiratory Rate 18 04/16/2023 8:17 AM INDUCTION FURNACE OPERATOR Oxygen Saturation 98% 04/16/2023 8:17 AM INDUCTION FURNACE OPERATOR Inhaled Oxygen Concentration - - Weight 107.1 kg (236 lb 3.2 oz) 04/16/2023 8:17 AM INDUCTION FURNACE OPERATOR Height 175.3 cm (5' 9) 04/16/2023 8:17 AM INDUCTION FURNACE OPERATOR Body Mass Index 34.88 04/16/2023 8:17 AM INDUCTION FURNACE OPERATOR Plan of Treatment Not on file Medical Devices Implanted Type Area Septic Tank Installer Device Identifier Shelf Expiration Date Model / Serial / Lot [employer] [id number] Yuriy .045in 4in 2 [place] Smooth Wire Fixation - [id number] Implanted:Qty: 3 on 01/06/2020 by Courtney Chawla MD PhD at [facility] Left: Hand [employer] [id number] / / Insurance [facility] [id number] Care Teams Report Manager Relationship Specialty Start Date End Date Dereck Armendariz MD PCP - General Internal Medicine 01/01/20 Rico Ackerman MD [address] [place] [address] Referring Physician Emergency Medicine 01/01/20
--- OUTSIDE RECORDS SUMMARY | 2024-10-19 10:42 | XMS_ITS | Clinical Summary ---
Author Organization [facility] Address [facility] [place] [address] Care Team Providers Care Storm Door Maker Name Role Phone Dereck Armendariz MD Primary Care Provider [phone] Rico Ackerman MD Unavailable [phone] Allergies No known active allergies Medications multivitamin [...] (01/04/2020): Added automatically from request for surgery [id number] Closed nondisplaced fracture of base of fourth metacarpal bone of left hand 01/04/2020 Overview (01/04/2020): Added automatically from request for surgery [id number] Atypical chest pain 02/25/2018 Asthma 11/01/2017 Persistent [...] on file Legal Sex Male 1:47 AM SHOVELER Gender Identity Not on file Sexual Orientation Not on file Obstetrics History Last Filed Vital Signs Vital Sign Reading Time Taken Comments Blood Pressure 143/95 04/16/2023 8:17 AM SHOVELER Pulse 62 04/16/2023 8:17 AM SHOVELER Temperature 36.8 C (98.2 F) 04/16/2023 8:17 AM SHOVELER Respiratory Rate 18 04/16/2023 8:17 AM SHOVELER Oxygen Saturation 98% 04/16/2023 8:17 AM SHOVELER Inhaled Oxygen Concentration - - Weight 107.1 kg (236 lb 3.2 oz) 04/16/2023 8:17 AM SHOVELER Height 175.3 cm (5' 9) 04/16/2023 8:17 AM SHOVELER Body Mass Index 34.88 04/16/2023 8:17 AM SHOVELER Plan of Treatment Health Maintenance Due Date [...] Tdap) 12/31/2029 Medical Devices Implanted Type Area Bible Reader Device Identifier Shelf Expiration Date Model / Serial / Lot [employer] [id number] Yuriy .045in 4in 2 [place] Smooth Wire Fixation - [id number] Implanted:Qty: 3 on 01/06/2020 by Courtney Chawla MD PhD at [facility] Left: Hand [employer] [id number] / / [facility] [id number] Member Subscriber Plan / Payer (Ef fective 2022-Present) Name:Baron Scott Member ID:[id number] Relation to Subscriber:Self Name:Baron Scott Subscriber ID:[id number] Payer ID:[id number] Type:HE[employer] HMO/PPO Address: [address] [place] [id number] Care Teams Storm Door Maker Relationship Specialty Start Date End Date Dereck Armendariz MD PCP - General Internal Medicine 01/01/20 Rico Ackerman MD [address] [place] [address] Referring Physician Emergency Medicine 01/01/20
--- OUTSIDE RECORDS SUMMARY | 2024-10-19 10:42 | XMS_ITS | Encounter Summary ---
Author Organization [facility] Address [address] [place] [address] Care Team Providers Care Realtime Captioner Name Role Phone Dereck Armendariz MD Primary Care Provider [phone] Cruz Vasquez MD Unavailable Mauri Elizalde MD Unavailable Rajani Yao APRN, NP-C Unavailable [phone] Encounter Details Date Type Department Care Team (Late st Contact Info) Description 03/24/2018 Abstract [facility] [address] [place] [address] Cruz Vasquez MD [address] [place] [address] Social History Tobacco Use Types Packs/Day Years Used Date Smoking Tobacco: Never Smokeless Tobacco: Never Sex and Gender Information Value Date Recorded Sex Assigned at Not on file Legal Sex Male 11:28 PM CDT Gender Identity Not on file Sexual Orientation Not on file 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 [...] on filedocumented in this encounter Care Teams Realtime Captioner Relationship Specialty Start Date End Date Dereck Armendariz MD [address] [place] [address] PCP - General INTERNAL MEDICINE 10/30/17 Cruz Vasquez MD [address] [place] [address] [place] Medical Staff Physician CARDIOVASCULAR DISEASE 10/30/17 Mauri Elizalde MD [address] [place] [address] Consulting Physician PULMONARY DISEASE 02/25/18 Rajani Yao, DIVISIONAL STOREKEEPER, RUBBER GOODS FINISHER-C [address] [facility] [address] [place] [address] NURSE PRACTITIONER 08/07/19 documented as of this encounter
--- OUTSIDE RECORDS SUMMARY | 2024-10-19 10:42 | XMS_ITS | Clinical Summary ---
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 file [...] patient's age to complete this topic Insurance [id number] [facility] Care Teams Mosquito Sprayer Relationship Specialty Start Date End Date Dereck Armendariz MD [address] [place] [address] PCP - General INTERNAL MEDICINE 10/30/17 Cruz Vasquez MD [address] [place] [address] [place] Recording Engineer CARDIOVASCULAR DISEASE 10/30/17 Mauri Elizalde MD [address] [place] [address] Consulting Physician PULMONARY DISEASE 02/25/18 Rajani Yao, BAGGAGE AGENT, TETRYL BOILING TUB OPERATOR-C [address] [place] [address] [address] [place] [address] NURSE PRACTITIONER 08/07/19
== END 2024-10-19 10:38 | disposition home or self-care (01) ==
LOC: CHSIMG 10:39
PROVIDERS: PCP Internal Medicine; Visit Provider Internal Medicine
DX: M25.512 Pain in left shoulder (principal)
CPT/HCPCS: 73030

== ENCOUNTER 2024-10-29 06:52 | Outpatient (CLI) | payer OTHER, SELFPAY ==
--- NOTE | ~2024-10-29 | MR_ITS ---
EXAMINATION: MR knee RT wo con DATE: 10/29/2024 07:52 INDICATION: Right knee pain TECHNIQUE: Magnetic resonance imaging (MRI) of the right knee was performed without intravenous contr ast. Sequences included coronal PD-weighted FSE, coronal PD-weighted FS FSE, sagittal T2-weighted FS E, sagittal PD-weighted FS FSE and axial PD weighted fat saturated FSE. COMPARISON: None. FINDINGS: Medial compartment: Complex tear of the body and posterior horn of the medial meniscus. There is a large meniscal flap ar ising from the medial side of the meniscal body which is displaced anterior laterally along the media l margin of the posterior intercondylar eminence. Deep chondral fissuring with underlying subarticula r edema-like signal change along the lateral aspect of the anterior weightbearing medial femoral cond yle. Lateral compartment: Complex tear with macerated appearance at the posterior root of the lateral meniscus with more well-d efined linear longitudinal vertical tear extending to the intra-articular surface of the posterior ho rn. Deep chondral fissuring with prominent underlying subarticular edema-like signal change at the an teromedial aspect of the medial tibial plateau and extending into the more posterior lateral aspect l ateral tibial plateau without degenerative subchondral changes. Cartilage along the weightbearing lat eral femoral condyle is normal. Patellofemoral compartment: Deep chondral fissuring with small focus of subarticular edema-like signal change at the central aspe ct of the medial patellar facet. Less severe partial thickness chondral fissuring at the patellar api imtiaz ridge and medial side of the lateral facet. Trochlear cartilage is normal. Ligaments and tendons: Posterior cruciate ligament is normal. The anterior cruciate ligament demonstrates a normal angle rel ative to Blumensaat line. It appears thickened with increased intrasubstance signal surrounding intac t appearing linear fibers with a celery stalk appearance consistent with mucoid degeneration. The m edial collateral ligament and fibular collateral ligament complex are normal. The extensor mechanism is normal. The visualized medial and lateral hamstring tendons as well as the iliotibial band are nor mal. Fluid: Physiologic amount of fluid in the joint space. No loose osteochondral bodies identified. There is a long multilobulated ganglion cyst which extends 5.5 cm cephalad along the anterior margin of the semi membranosus muscle and tendon and measures 0.9 x 1.5 cm in maximal orthogonal dimensions. Osseous/other: No fracture or pathologic marrow replacing process. IMPRESSION: 1. Complex medial and lateral meniscal tears with displaced meniscal flap arising from the posterior horn of the medial meniscus. 2. With mild tricompartmental osteoarthritis with regions of high-grade chondromalacia in all 3 wendie rtments. 3. Mucoid degeneration without discrete tear of the anterior cruciate ligament. 4. Moderate-sized multilobulated ganglion cyst along the anterior margin of the distal semimembranosu s muscle and tendon. Reviewed, dictated and finalized at location A. IMPRESSION: 1. Complex medial and lateral meniscal tears with displaced meniscal flap arisi ng from the posterior horn of the medial meniscus. 2. With mild tricompartmental osteoarthritis with regions of high-grade chondro malacia in all 3 compartments. 3. Mucoid degeneration without discrete tear of the anterior cruciate ligament. 4. Moderate-sized multilobulated ganglion cyst along the anterior margin of the distal semimembranosus muscle and tendon.
--- OUTSIDE RECORDS SUMMARY | 2024-10-29 06:56 | XMS_ITS | Encounter Summary ---
Author Organization [facility] Address [address] [place] [address] Care Team Providers Care Supervisor Diagnostic Name Role Phone Dereck Armendariz MD Primary Care Provider [phone] Cruz Vasquez MD Unavailable Mauri Elizalde MD Unavailable [phone] Rajani Yao APRN, NP-C Unavailable [phone] Encounter Details Date Type Department Care Team (Late st Contact Info) Description 03/24/2018 Abstract [facility] [address] [place] [address] Cruz Vasquez MD [address] [place] [address] Social History Tobacco Use Types Packs/Day Years Used Date Smoking Tobacco: Never Smokeless Tobacco: Never Sex and Gender Information Value Date Recorded Sex Assigned at Not on file Legal Sex Male 11:28 PM CDT Gender Identity Not on file Sexual Orientation Not on file 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 file [...] on filedocumented in this encounter Care Teams Supervisor Diagnostic Relationship Specialty Start Date End Date Dereck Armendariz MD [address] [place] [address] PCP - General INTERNAL MEDICINE 10/30/17 Cruz Vasquez MD [address] [place] [address] [place] Manager [place] CARDIOVASCULAR DISEASE 10/30/17 Mauri Elizalde MD [address] [place] [address] Consulting Physician PULMONARY DISEASE 02/25/18 Rajani Yao, RESIDENT SERVICE COORDINATOR, LEADERSHIP DEVELOPMENT CONSULTANT-C [address] [facility] [address] [place] [address] NURSE PRACTITIONER 08/07/19 documented as of this encounter
--- OUTSIDE RECORDS SUMMARY | 2024-10-29 06:56 | XMS_ITS | Referral Summary ---
Author Organization [facility] Address [facility] [place] [address] Care Team Providers Care Presbyterian Clergy Name Role Phone Dereck Armendariz MD Primary Care Provider [phone] Rico Ackerman MD Unavailable [phone] Allergies No known active allergies Medications multivitamin [...] (01/04/2020): Added automatically from request for surgery [id number] Closed nondisplaced fracture of base of fourth metacarpal bone of left hand 01/04/2020 Overview (01/04/2020): Added automatically from request for surgery [id number] Atypical chest pain 02/25/2018 Asthma 11/01/2017 Persistent [...] on file Legal Sex Male 1:47 AM MARBLE SUPERVISOR Gender Identity Not on file Sexual Orientation Not on file Last Filed Vital Signs Vital Sign Reading Time Taken Comments Blood Pressure 143/95 04/16/2023 8:17 AM MARBLE SUPERVISOR Pulse 62 04/16/2023 8:17 AM MARBLE SUPERVISOR Temperature 36.8 C (98.2 F) 04/16/2023 8:17 AM MARBLE SUPERVISOR Respiratory Rate 18 04/16/2023 8:17 AM MARBLE SUPERVISOR Oxygen Saturation 98% 04/16/2023 8:17 AM MARBLE SUPERVISOR Inhaled Oxygen Concentration - - Weight 107.1 kg (236 lb 3.2 oz) 04/16/2023 8:17 AM MARBLE SUPERVISOR Height 175.3 cm (5' 9) 04/16/2023 8:17 AM MARBLE SUPERVISOR Body Mass Index 34.88 04/16/2023 8:17 AM MARBLE SUPERVISOR Plan of Treatment Not on file Medical Devices Implanted Type Area Ledge Man Device Identifier Shelf Expiration Date Model / Serial / Lot [employer] [id number] Yuriy .045in 4in 2 [place] Smooth Wire Fixation - [id number] Implanted:Qty: 3 on 01/06/2020 by Courtney Chawla MD PhD at [facility] Left: Hand [employer] [id number] / / Insurance [facility] [id number] Care Teams [facility] Clergy Relationship Specialty Start Date End Date Dereck Armendariz MD PCP - General Internal Medicine 01/01/20 Rico Ackerman MD [address] [place] [address] Referring Physician Emergency Medicine 01/01/20
--- OUTSIDE RECORDS SUMMARY | 2024-10-29 06:56 | XMS_ITS | Encounter Summary ---
Author Organization [facility] Address [address] [place] [address] Care Team Providers Care Director Student Union Name Role Phone Dereck Armendariz MD Primary Care Provider Cruz Vasquez MD Unavailable Mauri Elizalde MD Unavailable [phone] Raajni Yao APRN, NP-C Unavailable Encounter Details Date Type Department Care Team (Late st Contact Info) Description 10/28/2017 Abstract [facility] AT [facility] [address] [place] [address] Cruz Vasquez MD [address] [place] [address] Social History Tobacco Use Types Packs/Day Years Used Date Smoking Tobacco: Never Smokeless Tobacco: Never Sex and Gender Information Value Date Recorded Sex Assigned at Not on file Legal Sex Male 11:28 PM CDT Gender Identity Not on file Sexual Orientation Not on file 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 file N ot on file documented as of this encounter Plan of Treatment Not on file documented as of this encounter Visit Diagnoses Not on filedocumented in this encounter Care Teams Director Student Union Relationship Specialty Start Date End Date Dereck Armendariz MD [address] [place] [address] PCP - General INTERNAL MEDICINE 10/30/17 Cruz Vasquez MD [address] [place] [address] [place] C 40A Crew Chief CARDIOVASCULAR DISEASE 10/30/17 Mauri Elizalde MD [address] [place] [address] Consulting Physician PULMONARY DISEASE 02/25/18 Rajani Yao APRN, GALLERY DIRECTOR-C [address] [place] [address] [address] [place] [address] NURSE PRACTITIONER 08/07/19 documented as of this encounter
--- OUTSIDE RECORDS SUMMARY | 2024-10-29 06:56 | XMS_ITS | Clinical Summary ---
Author Organization [facility] Address [facility] [place] [address] Care Team Providers Care Publications Writer Name Role Phone Dereck Armendariz MD Primary Care Provider [phone] Rico Ackerman MD Unavailable [phone] Allergies No known active allergies Medications multivitamin [...] (01/04/2020): Added automatically from request for surgery [id number] Closed nondisplaced fracture of base of fourth metacarpal bone of left hand 01/04/2020 Overview (01/04/2020): Added automatically from request for surgery [id number] Atypical chest pain 02/25/2018 Asthma 11/01/2017 Persistent [...] on file Legal Sex Male 1:47 AM CHAINSTITCH BINDER Gender Identity Not on file Sexual Orientation Not on file Obstetrics History Last Filed Vital Signs Vital Sign Reading Time Taken Comments Blood Pressure 143/95 04/16/2023 8:17 AM CHAINSTITCH BINDER Pulse 62 04/16/2023 8:17 AM CHAINSTITCH BINDER Temperature 36.8 C (98.2 F) 04/16/2023 8:17 AM CHAINSTITCH BINDER Respiratory Rate 18 04/16/2023 8:17 AM CHAINSTITCH BINDER Oxygen Saturation 98% 04/16/2023 8:17 AM CHAINSTITCH BINDER Inhaled Oxygen Concentration - - Weight 107.1 kg (236 lb 3.2 oz) 04/16/2023 8:17 AM CHAINSTITCH BINDER Height 175.3 cm (5' 9) 04/16/2023 8:17 AM CHAINSTITCH BINDER Body Mass Index 34.88 04/16/2023 8:17 AM CHAINSTITCH BINDER Plan of Treatment Health Maintenance Due Date [...] Tdap) 12/31/2029 Medical Devices Implanted Type Area Environmental Sustainability Manager Device Identifier Shelf Expiration Date Model / Serial / Lot [employer] [id number] Yuriy .045in 4in 2 [place] Smooth Wire Fixation - [id number] Implanted:Qty: 3 on 01/06/2020 by Courtney Chawla MD PhD at [facility] Left: Hand [employer] [id number] / / [facility] COUNTS [facility]CLUDE 234 BEDS AT [facility] [id number] Member Subscriber Plan / Payer (Ef fective 2022-Present) Name:Baron Scott Member ID:[id number] Relation to Subscriber:Self Name:Baron Scott Subscriber ID:[id number] Payer ID:[id number] Type:[employer] HMO/PPO Address: [address] [place] [id number] Care Teams Publications Writer Relationship Specialty Start Date End Date Dereck Armendariz MD PCP - General Internal Medicine 01/01/20 Rico Ackerman MD [address] [place] [address] Referring Physician Emergency Medicine 01/01/20
--- OUTSIDE RECORDS SUMMARY | 2024-10-29 06:56 | XMS_ITS | Clinical Summary ---
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 file [...] patient's age to complete this topic Insurance Rebtel OPEN ACCESS [facility] Care Teams Production Foreman Relationship Specialty Start Date End Date Dereck Armendariz MD [address] [place] [address] PCP - General INTERNAL MEDICINE 10/30/17 Cruz Vasquez MD [address] [place] [address] Benjamin Malt House Supervisor CARDIOVASCULAR DISEASE 10/30/17 Mauri Elizalde MD [address] [place] [address] Consulting Physician PULMONARY DISEASE 02/25/18 Rajani Yao, TIMBER TREATMENT PLANT OPERATOR, PRODUCTION PACKAGER-C [address] [place] [address] [address] [place] [address] NURSE PRACTITIONER 08/07/19
--- OUTSIDE RECORDS SUMMARY | 2024-10-29 06:56 | XMS_ITS | Continuity of Care Document ---
Author Organization [facility] Address [address] [place] [address] Phone Care Team Providers Care Rotary Shear Worker Helper Name Role Phone Polanco OD, Manuel Unavailable Unavailable Procedures Procedure Date Contact Lens Hydrophilic, Spherical Medical Tax Optic Nerve Topography Optic Nerve Topography Jan- Visual Field Examination(s) Eye Exam & Treatment Refraction Eye Exam & Treatment Refraction CL Replacement - [employer] Disp W/BW Soft Radio Systemes [employer] - Medical Eye Exam Established Pt Eye Exam Established Pt CL Replacement - [employer] Disp W/BW Soft Radio Systemes [employer] - Medical Optic Nerve Topography Optic Nerve Topography Visual Field Examination(s) Eye Exam & Treatment CL Replacement - [employer] Disp W/BW Soft Radio Systemes [employer] - Medical Eye Exam & Treatment Refraction CL Replacement - [employer] Other 007 Radio Systemes [employer] - Medical Advance Directives Directive Yes / No Effective Date File Name No Information Encounters Encounter Description Practice Location Reason(s) For Visit Diagnoses Date Provider Providers [facility] [address], [place], [place], [id number], [place] tel:[phone] [facility] [place] No Information Oct-2 2-201 0 Polanco OD Manuel. [address] [facility] [address] , [address], [place], [address], [place]. tel:[phone] Referring Provider: Manuel Polanco OD A, [address], [place], [place], [facility]. tel:[phone] [facility], [id number] [place] [address] [address], [place], [place], [id number], [place] tel:[phone] [facility] [place] No Information Oct-1 2-201 0 Polanco OD Manuel. [address] [facility] [address], [address], [place], [address], [place]. tel:[phone] Referring Provider: Manuel Crowe, [facility] [address], [place], [place], [facility]. tel:[phone] [facility], [address], [place], [place], [id number], [place] tel:[phone] [facility] [place] No Information Aug-2 3-201 0 Polanco OD Manuel. [address] [place], [place] [address]ate [address], [address], [place], [place], [facility], [place]. tel:[phone] Referring Provider: Manuel Crowe, [facility] [address], [place], [address]. tel:[phone] [facility], [address], [place], [place], [id number], [place] tel:[phone] [facility] [place] No Information Gael-2 5-201 0 Polanco OD Manuel. [facility] [address], [address], [place], [address], [place]. tel:[phone] [facility], [address], [place], [place], [id number], [place] tel:[phone] [facility] [place] No Information Apr-1 0-200 9 Polanco OD Manuel. [address], [address], [place], [place], [facility], [place]. tel:[phone] [facility], [address], [place], [place], [address], [place] tel:[phone] [facility] No Information Apr-1 0-200 9 Polanco OD Manuel. [address] [place], [place] [address]ate Center , [address], [place], [place], [facility], [place]. tel:[phone] Referring Provider: Manuel Polanco OD A, [facility] [address], [place], [facility]. tel:[phone] [facility], [address] [place] [address] [address], [place], [place], [id number], [place] tel:[phone] [facility] No Information Oct-1 1-200 8 Polanco OD Manuel. [address] [place], [place] [address]ate Center , [address], [place], [place], [facility], [place]. tel:[phone] [facility], [address] [place] [address] [address], [place], [place], [id number], [place] tel:[phone] [facility] No Information Gael-0 5-200 8 Polanco OD Manuel. [address] [place], [place] [address]ate Center , [address], [place], [place], [facility], [place]. tel:[phone] [facility], [address] [place] [address] [address], [place], [place], [address], [place] tel:[phone] [facility] [place] No Information Apr-1 8-200 8 Polanco OD Manuel. [address] [place], [place] [address]ate Center , [address], [place], [address], [place]. tel:[phone] Referring Provider: Manuel Polanco OD A, [facility] [address], [place], [address]. tel:[phone] [facility], [address] [place] [address] [address], [place], [place], [id number], [place] tel:[phone] [facility] [place] No Information 200 8 Polanco OD Manuel. [address] , [address], [place], [address], [place]. tel:[phone] Referring Provider: Manuel Crowe, [address], [place], [place], [facility]. tel:[phone] [facility], [address], [place], [place], [id number], tel:[phone] [facility] [place] No Information 7 Polanco OD Manuel. [address] [facility] [address] , [address], [place], [address], [place]. tel:[phone] Family History Family Member Type Diagnosis Age At Onset No Information Payers Payer name Insurance type Covered green party ID Authoriza tion(s) No Information Social [...]
== END 2024-10-29 06:53 | disposition home or self-care (01) ==
LOC: CHSIMG 06:54
PROVIDERS: PCP Internal Medicine; Visit Provider Internal Medicine
DX: M25.561 Pain in right knee (principal); S83.271A Complex tear of lateral meniscus, current injury, right knee, initial encounter; S83.231A Complex tear of medial meniscus, current injury, right knee, initial encounter; M17.11 Unilateral primary osteoarthritis, right knee; M94.261 Chondromalacia, right knee; M67.461 Ganglion, right knee
CPT/HCPCS: 73721